=== PATIENT | female | born 1950 | race Caucasian/White ===

== ENCOUNTER 2018-02-07 14:30 | Emergency (ER) | payer MEDICARE, BC ==
[~2018-02-07] VITALS: Ht 172.7 cm; Wt 118.4 kg
[2018-02-07 14:55] VITALS: BP 133/67
== END 2018-02-07 15:25 | disposition home or self-care (01) ==
LOC: ER 14:46
DX: H66.92 Otitis media, unspecified, left ear (principal); H60.92 Unspecified otitis externa, left ear; K21.9 Gastro-esophageal reflux disease without esophagitis; Z86.711 Personal history of pulmonary embolism; Z88.0 Allergy status to penicillin
CPT/HCPCS: A4606; Z7610

== ENCOUNTER 2020-08-11 09:44 | Inpatient (IN) | payer MEDICARE, BC ==
[2020-08-11] MEDS ORDERED: MORPHINE SULFATE INJ 2 MG/ML DISP.SYRIN IM ONE (10:30)
[2020-08-11] MEDS ORDERED: MORPHINE SULFATE INJ 4 MG/ML DISP.SYRIN ONE (10:33)
[2020-08-11] MEDS ORDERED: RIVA10TA PO (11:51)
[2020-08-11] MEDS ORDERED: ANAS1TAB50 PO (11:51)
[2020-08-11] MEDS ORDERED: HYDROMORPHONE 1 MG/1 ML DISP.SYRIN ONE (11:51)
[2020-08-11] MEDS ORDERED: HYDROMORPHONE 1 MG/1 ML DISP.SYRIN IV ONE (12:00)
[2020-08-11] MEDS ORDERED: MAG HYDROX/AL HYDROX/SIMETH 30 ML UDC PO PRN (14:00)
[2020-08-11] MEDS ORDERED: ACETAMINOPHEN 325 MG TABLET PO PRN (14:00)
[2020-08-11] MEDS ORDERED: MAGNESIUM HYDROXIDE 30 ML UDC PO PRN (14:00)
[2020-08-11] MEDS ORDERED: Z GUARD REMEDY 2 OZ OINT TP PRN (14:00)
[2020-08-11] MEDS: HYDROCODONE/APAP 5/325MG TABLET PO PRN (14:58)
[2020-08-11] MEDS: HYDROMORPHONE INJ 2 MG/ML DISP.SYRIN IV PRN ×2 (16:56→21:27)
[2020-08-11] MEDS ORDERED: RIVAROXABAN 10 MG TABLET PO SCH (17:00)
[2020-08-11] MEDS: ONDANSETRON HCL/PF 4 MG/2 ML VIAL IVP PRN (18:32)
[2020-08-12] MEDS ORDERED: ZOLPIDEM TARTRATE 5 MG TABLET PO PRN
[2020-08-12] MEDS: HYDROCODONE/APAP 5/325MG TABLET PO PRN ×2 (08:17→21:59)
[2020-08-12] MEDS: ANASTROZOLE 1 MG TABLET PO SCH (11:55)
[2020-08-12] MEDS: MORPHINE SULFATE INJ 4 MG/ML DISP.SYRIN IV PRN ×2 (11:56→17:02)
[2020-08-12] MEDS: ONDANSETRON HCL/PF 4 MG/2 ML VIAL IVP PRN (19:34)
[2020-08-13] MEDS: ANASTROZOLE 1 MG TABLET PO SCH (08:21)
[2020-08-13] MEDS ORDERED: BACITRACIN 50000 UNITS/VIAL ONE (14:55)
[2020-08-13] MEDS ORDERED: HYDROMORPHONE INJ 2 MG/ML DISP.SYRIN ONE (15:28)
[2020-08-13] MEDS ORDERED: ANESTHESIA TRAY IN PYXIS 1 EA TRAY MC ONE (15:33)
[2020-08-13] MEDS ORDERED: SEVOFLURANE 250 ML BOTTLE IH ONE (16:20)
[2020-08-13] MEDS ORDERED: TYLENOL 650 MG TABLET PO PRN (19:00)
[2020-08-13] MEDS ORDERED: IV PREMIX D5 1/2NS + KCL 1,000 ML IV PRN (19:30)
[2020-08-13] MEDS: HYDROCODONE/APAP 5/325MG TABLET PO PRN (20:57)
[2020-08-13] MEDS ORDERED: AMBIEN 5 MG TABLET PO PRN (22:00)
[2020-08-13] MEDS: ONDANSETRON HCL/PF 4 MG/2 ML VIAL IVP PRN (22:04)
[2020-08-13] MEDS: MORPHINE SULFATE INJ 4 MG/ML DISP.SYRIN IV PRN (22:05)
[2020-08-13] MEDS: ANCEF 1 G in IV D5W 50 ML IV SCH (23:56)
[2020-08-14] MEDS: ONDANSETRON HCL/PF 4 MG/2 ML VIAL IVP PRN ×3 (04:13→18:56)
[2020-08-14] MEDS: MORPHINE SULFATE INJ 4 MG/ML DISP.SYRIN IV PRN ×3 (04:14→18:56)
[2020-08-14] MEDS: HYDROCODONE/APAP 5/325MG TABLET PO PRN ×2 (05:18→10:48)
[2020-08-14] MEDS: ANCEF 1 G in IV D5W 50 ML IV SCH (08:35)
[2020-08-14] MEDS: ANASTROZOLE 1 MG TABLET PO SCH (10:15)
[2020-08-14] MEDS: HYDROMORPHONE 1 MG/1 ML DISP.SYRIN IV PRN ×3 (12:33→21:40)
[2020-08-14] MEDS: RIVAROXABAN 10 MG TABLET PO SCH (16:41)
[2020-08-15] MEDS: MORPHINE SULFATE INJ 4 MG/ML DISP.SYRIN IV PRN ×2 (01:39→06:34)
[2020-08-15] MEDS: ONDANSETRON HCL/PF 4 MG/2 ML VIAL IVP PRN ×3 (01:39→16:33)
[2020-08-15] MEDS: HYDROMORPHONE 1 MG/1 ML DISP.SYRIN IV PRN ×4 (07:55→16:33)
[2020-08-15] MEDS: ANASTROZOLE 1 MG TABLET PO SCH (08:20)
[2020-08-15] MEDS: RIVAROXABAN 10 MG TABLET PO SCH (16:33)
== END 2020-08-15 18:00 | DRG 512 ==
DX: S52.121A Displaced fracture of head of right radius, initial encounter for closed fracture (principal); W01.0XXA Fall on same level from slipping, tripping and stumbling without subsequent striking against object, initial encounter; Y92.009 Unspecified place in unspecified non-institutional (private) residence as the place of occurrence of the external cause; K21.9 Gastro-esophageal reflux disease without esophagitis; Z86.711 Personal history of pulmonary embolism; M81.0 Age-related osteoporosis without current pathological fracture; S52.022A Displaced fracture of olecranon process without intraarticular extension of left ulna, initial encounter for closed fracture; Z79.01 Long term (current) use of anticoagulants; Z85.3 Personal history of malignant neoplasm of breast; Z79.899 Other long term (current) drug therapy; Z88.0 Allergy status to penicillin; Z98.890 Other specified postprocedural states; Z90.49 Acquired absence of other specified parts of digestive tract